=== PATIENT | male | born 1995 | race Caucasian/White ===

== ENCOUNTER 2016-08-25 11:05 | Emergency (ER) | payer SELFPAY ==
[~2016-08-25] VITALS: Ht 185.4 cm; Wt 70.0 kg
[~2016-08-25 11:05] MED LIST: RISP.25 PO
[2016-08-25 11:07] VITALS: BP 145/65; PULSE 105; RESP 14; TEMP 98.3; O2SAT 92
[2016-08-25 11:57] VITALS: PULSE 93; RESP 18; O2SAT 97
--- NOTE | 2016-08-25 12:20 | PD ---
HPI . skin infection and recent PNA 3 weeks ago with worsening cough Chief Complaint: Skin Problem Time Seen by Provider: 12:00 Travel History International Travel<30 days: No Contact w/Intl Traveler<30days: No Traveled to known affect area: No History of Present Illness HPI 21 yr old male with tobaccoism here with c/o skin infection and skin lesions scattered throughout his B/L LE and UE and face. Patient states he was staying at a hotel and he thinks there were bed bugs. He says they started off very itchy and now have progressed to being very red and some of them hurt. Most painful ones are located on his left foot. He says he does not recall scratching at them. This morning he took his foot out of his hips and noticed that he had some swelling. He also reports that he had pneumonia about 3 weeks ago where he was treated for it, however he has a worsening cough with worsening phlegm production. He denies any fever, chills, chest pain, shortness of breath, or inability to walk. 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, coccaine use 2 weeks ago) Allergies-Medications (Allergen,Severity, Reaction): Coded Allergies: Cultivated Oat Pollen (Verified Allergy, Unknown, 08/25/16) Percodan (Verified Allergy, Unknown, 08/25/16) Reported Meds & Prescriptions Reported Meds & Active Scripts Active Bactrim DS (Sulfamethoxazole-Trimethoprim) 800-160 Mg Tab 1 Tab PO BID Bactroban Topical (Mupirocin) 2 % Cream 1 Applic TOPICAL BID Reported Risperdal (Risperidone) 0.25 Mg Tab 0.25 Mg PO BID Review of Systems General / Constitutional: No: Fever Eyes: No: Visual changes HENT: No: Headaches Cardiovascular: No: Chest Pain or Discomfort Respiratory: No: Shortness of Breath Gastrointestinal: No: Abdominal Pain Genitourinary: No: Dysuria Musculoskeletal: No: Pain Skin: Positive Rash, Positive Other (left foot infection ) Neurologic: No: Weakness Psychiatric: No: Depression Endocrine: No: Polydipsia Hematologic/Lymphatic: No: Easy Bruising Physical Exam Narrative GENERAL: AAO x 3, no acute distress, Well-nourished, well-developed patient. SKIN: Warm and dry. Multiple scattered healing lesions on face, RUE, and B/L LE , foot with several lesions resembling healing excoriations with surrounding erythema and mild warmth.There is some pedal edema (trace). On right LE there are 4 healing lesions with surrounding erythema. HEAD: Normocephalic and atraumatic. EYES: No scleral icterus. No injection or drainage. ENT: No nasal drainage noted. Mucous membranes pink. Airway patent. NECK: Supple, trachea midline. No JVD. CARDIOVASCULAR: Regular rate and rhythm without murmurs, gallops, or rubs. Mil tachy on exam HR 102 RESPIRATORY: Breath sounds diminished on right side. + Rhonchi R>L GASTROINTESTINAL: Abdomen soft, non-tender, nondistended. EXTREMITIES: No cyanosis or edema. BACK: Nontender without obvious deformity. No CVA tenderness. PSYCH: AAO x 3, normal affect. Data Data Last Documented VS Vital Signs Date Time Temp Pulse Resp B/P Pulse Ox O2 Delivery O2 Flow Rate FiO2 08/25/16 11:57 93 18 97 Room Air 08/25/16 11:07 98.3 145/65 Orders Chest, Single Ap (08/25/16 12:20) MDM Medical Decision Making Medical Screen Exam Complete: Yes Emergency Medical Condition: Yes Medical Record Reviewed: Yes Differential Diagnosis cellulitis, bed bug bites, recurrent PNA, bronchitis, less likely impetigo Narrative Course 21 yr old male with tobaccoism here with c/o skin infection and skin lesions scattered throughout his B/L LE and UE and face. Patient states he was staying at a hotel and he thinks there were bed bugs. He says they started off very itchy and now have progressed to being very red and some of them hurt. Most painful ones are located on his left foot. He says he does not recall scratching at them. This morning he took his foot out of his hips and noticed that he had some swelling. He also reports that he had pneumonia about 3 weeks ago where he was treated for it, however he has a worsening cough with worsening phlegm production. He denies any fever, chills, chest pain, shortness of breath, or inability to walk. Patient seen and examined. He does appear to have a mild cellulitis prominently affecting his left foot. He will need antibiotics both topical and oral. He does have some diminished breath sounds and some rhonchi. With history of pneumonia recommend repeat chest x-ray. CXR results: normal with frequent coughing will treat with prednisone and tessalon perles Patient verbalized understanding of instructions, questions were answered, and thanked me for their care. I advised them if their condition worsens, please return to the nearest emergency room for further care. Diagnosis Primary Impression: Cellulitis of foot, left Additional Impression: Acute bronchitis Qualified Code: J20.9 - Acute bronchitis, unspecified organism Patient Instructions: Acute Bronchitis (ED), Cellulitis (ED), General Instructions Additional Instructions: Take medications as prescribed. Follow up with your primary care provider. Take showers every day and wear clean white socks to avoid worsening of the infection on your left foot. Use topical cream twice a day to the affected areas scattered all over your legs , foot and arm. Return to ED if your symptoms return or worsen. Med/Other Pt SpecificInfo: Prescription(s) given Scripts Benzonatate (Tessalon Perles)100 Mg Suo102 Mg PO TID PRN (COUGH) #30 CAP Ref 0 Prov:Germania Chowdhury 08/25/16 Prednisone 50 Mg Tab50 Mg PO DAILY #5 TAB Ref 0 Prov:Germania Chowdhury 08/25/16 Sulfamethoxazole-Trimethoprim (Bactrim DS)800-160 Mg Tab1 Tab PO BID #20 TAB Ref 0 Prov:Germania Chowdhury 08/25/16 Mupirocin Topical (Bactroban Topical)2 % Cream1 Applic TOPICAL BID #1 TUBE Ref 0 Prov:Germania Chowdhury 08/25/16 Disposition: 01 DISCHARGE HOME Condition: Stable Germania Chowdhury Aug 25, 2016 12:20
[2016-08-25] MEDS ORDERED: BACT800T5 PO (12:30)
[2016-08-25] MEDS ORDERED: MUPI2%T TOPICAL (12:30)
[2016-08-25] MEDS ORDERED: BENZ100 PO (13:03)
[2016-08-25] MEDS ORDERED: PRED50 PO (13:03)
--- NOTE | 2016-08-25 13:11 | RADRPT ---
EXAM DATE/TIME: 08/25/2016 12:25 [facility] COMPARISON: No previous studies available for comparison. INDICATIONS : Cough. MEDICAL HISTORY : pneumonia SURGICAL HISTORY : None. ENCOUNTER: Initial ACUITY: 1 day PAIN SCORE: 0/10 LOCATION: Bilateral chest FINDINGS: A single view of the chest demonstrates the lungs to be symmetrically aerated without evidence of mas s, infiltrate or effusion. The cardiomediastinal contours are unremarkable. Osseous structures are intact. CONCLUSION: No acute disease. There is no evidence of pneumonia. Shayne Norton MD on August 25, 2016 at 13:06 Board Certified Radiologist. This report was verified electronically.
== END 2016-08-25 14:01 | disposition home or self-care (01) ==
LOC: NEPB 11:05
DX: L03.119 Cellulitis of unspecified part of limb (principal); J20.9 Acute bronchitis, unspecified; F17.210 Nicotine dependence, cigarettes, uncomplicated
CPT/HCPCS: 71010; 99283